=== PATIENT | male | born 1960 ===

== ENCOUNTER 2018-05-16 13:01 | Emergency (ER) | payer SELFPAY ==
--- NOTE | 2018-05-16 13:53 | XRay Report ---
RIGHT SHOULDER RADIOGRAPHS INDICATION: Shoulder injury. COMPARISON: None similar at this institution. FINDINGS: Frontal and attempted Y views of the right shoulder suggest anteroinferior glenohumeral dislocation. No apparent fracture. Intact AC articulation. Normal imaged lung and ribs. Approximately 4 mm foreign body as glass not excluded about right mid humerus level. CONCLUSION: Right shoulder dislocation and possible right upper arm foreign body, as described. Please correlate. Thank you for the opportunity to participate in this patient's care.
[2018-05-16] MEDS ORDERED: DIPRIVAN 10 MG/ML IV ONE ×2 (13:58→14:26)
[2018-05-16] MEDS ORDERED: NACL 0.9% 500 ML 500 ML IV ONE (13:58)
[2018-05-16] MEDS ORDERED: SUBLIMAZE IV ONE (13:58)
--- NOTE | 2018-05-16 14:01 | Emergency Department Report ---
Upper Extremity - HPI Chief Complaint: Extremity Injury, Upper Stated Complaint: LFT ARM INJURY SHOULDER BONE OUT Time Seen by Provider: 05/16/18 13:47 Upper Extremity: Right Shoulder Occurred When: Today Mechanism: Fall Severity: moderate Symptoms: Yes Pain with Movement, Yes Deformity, Yes Limited Range of Movement, No Numbness, No Weakness, No Swelling, No Bruising/Ecchymosis, No Laceration or Abrasion Other History: laboratory clerk: Gertrude Wiseman. This is a 57-year-old gentleman who denies chronic medical conditions to me, who indicates that he is right-hand dominant, who presents to the ER with a complaint of right-sided shoulder dislocation. Patient injured his shoulder after falling through a weak floor. He reports that the floor gave way and both of his arms slipped out laterally, and his right shoulder got jerked out of place. He denies headache, midline neck pain, chest pain, abdominal pain, shortness of breath. He has no weakness or numbness. He thinks that a shard of wood went into his right bicep. His pain is constant, increases with palpation and decreases with rest. ED Review of Systems ROS: Stated complaint: LFT ARM INJURY SHOULDER BONE OUT Other details as noted in HPI Constitutional: denies: fever Eyes: denies: eye discharge ENT: denies: epistaxis Respiratory: denies: cough Cardiovascular: denies: chest pain Gastrointestinal: denies: abdominal pain Musculoskeletal: arthralgia, myalgia Skin: denies: lesions Neurological: denies: headache, weakness ED Past Medical Hx - Past Medical History Previous Medical History?: No - Surgical History Past Surgical History?: No - Social History Smoking Status: Never Smoker Substance Use Type: None - Medications Home Medications: Home Medications Medication Instructions Recorded Confirmed Last Taken Type Acetaminophen [Tylenol Arthritis] 650 mg PO Q6HR PRN #30 tablet.er 05/16/18 Unknown Rx Ibuprofen [Motrin] 600 mg PO Q8H PRN #30 tablet 05/16/18 Unknown Rx Upper Extremity Exam - Exam General: Vital signs noted. No distress. Alert and acting appropriately. Extraocular movements intact. Tongue midline. No facial droop. Facial sensation intact to light touch in the V1, V2, V3 distribution bilaterally. 5 and 5 strength in 4 extremities.. Sensation is intact to light touch in 4 extremities. Gait within normal limits. 2+ pulses noted in the bilateral upper, lower extremities. Compartments soft. No long bony tenderness. The pelvis is stable. The right shoulder is tender. The right shoulder is deformed. Sensation is intact bilaterally to the deltoid, median, radial, ulnar distribution. 2+ pulses noted in the bilateral upper extremities. Thumb opposition, finger intrinsics functionality intact in the right upper extremity, wrist range of motion, flexion, extension, circumduction and intact. On the right upper extremity, there is no obvious laceration or penetrating wound. Head and Torso: No HEENT Abnormality, No Neck Tenderness, No Chest/Lungs Abnormality, No Abdominal Tenderness, No Back Tenderness Shoulder Exam: Yes Shoulder Tenderness, Yes Shoulder Deformity, No Clavicle Tenderness, No Normal Range of Motion in Shoulder, No AC Joint Tenderness Arm Exam: No Arm/Humerus Tenderness, No Arm Deformity Elbow: Yes Normal Range of Motion in Elbow, No Elbow Tenderness, No Elbow Deformity Forearm: No Forearm Tenderness, No Forearm Deformity, No Pain with Pronation, No Pain with Supination Wrist: Yes Normal ROM in Wrist, No Wrist Tenderness, No Wrist Deformity, No Snuffbox Tenderness, No Pain with Axial Thumb Compression Hand: Yes Normal ROM in Digit(s), No Hand Tenderness, No Hand Deformity, No Digit Tenderness, No Digit(s) Deformity, No Tendon Dysfunction CMS Exam: Yes Normal Distal Pulses, Yes Normal Capillary Refill, Yes Normal Distal Sensation, No Broken Skin ED Course Vital Signs 05/16/18 05/16/18 13:21 13:25 Temperature 97.8 F 97.8 F Pulse Rate 63 97 H Respiratory 16 16 Rate Blood Pressure 195/73 Blood Pressure 195/73 [Left] O2 Sat by Pulse 96 96 Oximetry - Reevaluation(s) Reevaluation #1: 05/16/18 15:12 Post reduction film appears to be appropriate for successful reduction. - Moderate Sedation Indications: fracture/dislocation redu Presedation Evaluation: Patient has not eaten since 7:00 this morning, he is 57 with elevated blood pressure, does not have any acutely decompensated medical issues that would complicate moderate sedation, therefore is an ASA class II. ASA Class: II Mallampati Airway Score: 1 Preparation: potline monitor applied, capnometry used, supplemental O2 applied, suction/airway equipment at bedside, IV secured Fentanyl: IV Fentanyl Dose: 25 IV Propofol Dose (mgs): 60 Complications: none Patient Tolerated Procedure: well Additional Comments: Sedation time from 14:26 to 14:28 - Orthopedic Joint Reduction Joint #1 Consent Obtained: verbal consent, written consent, emergent situation Time Out Performed: Yes Side: right Joint Reduction Location: shoulder Analgesia: moderate sedation Shoulder Technique Used (if applicable): scapula manipulation Post-Reduction Neuro Exam: intact Post-Reduction Vascular Exam: intact Post Reduction X-Ray Obtained: Yes Post Reduction X-Ray Results: reduced Splint Applied: Yes Patient Tolerated Procedure: well - Orthopedic Splinting/Casting Injury #1 Side: right Upper Extremity Injury Location: shoulder Upper Extremity Immobilizer: sling/shoulder immobilize ED Medical Decision Making - Lab Data Vital Signs 05/16/18 05/16/18 05/16/18 13:21 13:25 14:20 Temperature 97.8 F 97.8 F Temperature [ 98.2 F Pre-Procedure] Pulse Rate 63 97 H Pulse Rate [ Intra-Procedure ] Pulse Rate [ Post-Procedure] Pulse Rate [Pre 59 L -Procedure] Respiratory 16 16 Rate Respiratory Rate [Intra- Procedure] Respiratory Rate [Post- Procedure] Respiratory 24 Rate [Pre- Procedure] Blood Pressure 195/73 Blood Pressure [Intra- Procedure] Blood Pressure 195/73 [Left] Blood Pressure [Post-Procedure ] Blood Pressure 167/75 [Pre-Procedure] O2 Sat by Pulse 96 96 Oximetry O2 Sat by Pulse Oximetry [ Intra-Procedure ] O2 Sat by Pulse Oximetry [Post -Procedure] O2 Sat by Pulse 100 Oximetry [Pre- Procedure] 05/16/18 05/16/18 14:27 14:32 Temperature Temperature [ Pre-Procedure] Pulse Rate Pulse Rate [ 70 Intra-Procedure ] Pulse Rate [ 66 Post-Procedure] Pulse Rate [Pre -Procedure] Respiratory Rate Respiratory 16 Rate [Intra- Procedure] Respiratory 16 Rate [Post- Procedure] Respiratory Rate [Pre- Procedure] Blood Pressure Blood Pressure 156/59 [Intra- Procedure] Blood Pressure [Left] Blood Pressure 148/71 [Post-Procedure ] Blood Pressure [Pre-Procedure] O2 Sat by Pulse Oximetry O2 Sat by Pulse 99 Oximetry [ Intra-Procedure ] O2 Sat by Pulse 99 Oximetry [Post -Procedure] O2 Sat by Pulse Oximetry [Pre- Procedure] - Radiology Data Radiology results: report reviewed, image reviewed X-ray #1 demonstrates right-sided inferior shoulder dislocation, possible retained foreign body Post procedure x-ray demonstrates resolution of shoulder dislocation. - Medical Decision Making Differential diagnosis, including not limited to: Right shoulder dislocation, retained wooden foreign body Assessment and plan: 57-year-old male with right-sided shoulder dislocation. No evidence of neurovascular injury. No other obvious injuries noted. Shoulder has been successfully reduced. X-ray suggests retained foreign body. I see no evidence of penetrating wound to the skin. I explained to the patient using laboratory clerk that risks of doing exploration without an obvious penetration site outweigh benefits. Patient verbalized understanding. Postreduction, the patient is neurovascularly intact, is placed in a right upper extremity sling, and is suitable to follow up with outpatient orthopedics. It was explained to the patient that he will need to follow up with outpatient orthopedics to evaluate for possible ligamentous injury. Critical care attestation.: If time is entered above; I have spent that time in minutes in the direct care of this critically ill patient, excluding procedure time. ED Disposition Clinical Impression: Shoulder dislocation Qualifiers: Encounter type: initial encounter Laterality: right Qualified Code(s): S43.004A - Unspecified dislocation of right shoulder joint, initial encounter Disposition: DC-01 TO HOME OR SELFCARE Is pt being admited?: No Does the pt Need Aspirin: No Condition: Stable Instructions: Shoulder Dislocation (ED), Moderate Sedation (ED) Additional Instructions: Rest, and avoid heavy lifting. Avoid strenuous physical activities. Take the pain medication as needed/directed. I'll put an orthopedist within the next 7- 10 days. Please note that based on the mechanism of injury, patient may have an undiagnosed ligamentous/connective tissue injury to the right shoulder. The patient weighed to follow-up with an orthopedist to further evaluate this. Please note that x-ray suggests retained foreign body in the right upper extremity. As discussed, the risks of performing dissection for this possible retained foreign body outweigh benefits. Follow-up with a primary care doctor or orthopedist for this. Apply warm compresses as often as needed to the area for symptom relief, and return to the ER right away with new pain, worsened pain , migration of pain, projectile vomiting, change in mental status, confusion, redness, pus or streaking. Descanse y evite levantar objetos pesados. Evite actividades fsicas extenuantes. [place] el medicamento para el dolor segn sea necesario / dirigido. Pondr un ortopedista dentro de los prximos 7-10 monson. Tenga en cuenta que, segn el mecanismo de la lesin, el paciente puede tener elizabeth lesin ligamentosa / del tejido conectivo no diagnosticada en el hombro derecho. El paciente sopes el seguimiento con un ortopedista para evaluar ms a fondo esto. Tenga en cuenta que los francia X sugieren la presencia de cuerpo extrao retenido en la extremidad superior derecha. Ekaterina se discuti, los riesgos de realizar la diseccin para jennifer posible cuerpo extrao retenido superan a los beneficios. Norm un seguimiento con un mdico de cabecera u ortopedista para esto. Aplique compresas tibias magdaleno a menudo ekaterina sea necesario al francis para aliviar los sntomas, y regrese a la syd de emergencias con dolor nuevo, dolor empeorado, migracin de dolor, vmitos proyectiles, cambio en el estado mental, confusin, enrojecimiento, pus o alfonso. Prescriptions: Acetaminophen [Tylenol Arthritis] 650 mg PO Q6HR PRN #30 tablet.er PRN Reason: Pain Ibuprofen [Motrin] 600 mg PO Q8H PRN #30 tablet PRN Reason: Pain Referrals: [facility] [Provider Group] - 3-5 Days SANTO GOVEA MD [Staff Physician] - 3-5 Days Print Language: DANISH
[2018-05-16] MEDS ORDERED: BOOSTRIX IM ONE (14:39)
[2018-05-16 15:35] VITALS: BP 161/122
--- NOTE | 2018-05-16 15:46 | XRay Report ---
RIGHT SHOULDER RADIOGRAPH INDICATION: Postreduction. COMPARISON: 1:34 PM earlier today. FINDINGS: Portable, single, frontal right shoulder view, 3:03 PM, 05/16/2018 now demonstrates satisfactory humeral head position against the glenoid. Slight Hill-Sachs deformity not excluded. Intact acromioclavicular articulation as well. CONCLUSION: Satisfactory right glenohumeral reduction with slight Hill-Sachs deformity not excluded, as described. Please correlate. Thank you for the opportunity to participate in this patient's care.
== END 2018-05-16 15:55 | disposition home or self-care (01) ==
LOC: ED 13:01
DX: S43.004A Unspecified dislocation of right shoulder joint, initial encounter (principal); W13.3XXA Fall through floor, initial encounter; Y93.89 Activity, other specified; Y92.89 Other specified places as the place of occurrence of the external cause; Y99.8 Other external cause status
CPT/HCPCS: 23650; 73020; 73030; 90471; 90715; 96361; 96374; 96375; 99285; J2704; J3010; J7040